=== PATIENT | male | born 1955 | race Caucasian/White ===

== ENCOUNTER 2022-12-03 13:51 | Emergency (ER) | payer OTHER ==
[2022-12-03] MEDS ORDERED: Ringers Lactate 1,000 ML IV ONE (14:26)
[2022-12-03] MEDS ORDERED: ONDANSETRON 4 MG/2 ML VIAL ONE ×2 (14:26→15:19)
[2022-12-03 14:44] LABS: Absolute Lymphocytes (CBC) 2.2 K/uL (0.7-4.9); Hematocrit 48.7 % (39.6-49.0); Lymphocytes % 19.6 % (15.3-44.8); MCV 94.8 fL (80-100); MPV 9.3 fL (7.6-11.3); RBC Red Blood Cell Count 5.14 M/uL (4.33-5.43)
[2022-12-03 15:04] LABS: Albumin 4.6 g/dL (3.4-5.0); Bilirubin Total 0.9 mg/dL (0.2-1.0); Potassium 4.3 mEq/L (3.5-5.1); Protein, Total 8.5 g/dL (6.4-8.2)
[2022-12-03] MEDS ORDERED: MORPHINE 4 MG/ML SYR ONE (15:19)
--- NOTE | 2022-12-03 16:19 | RAD REPORT ---
EXAM DESCRIPTION: CT - Abdomen Pelvis W Contrast - 12/03/2022 3:40 pm CLINICAL HISTORY: Abd pain;Nausea / vomiting COMPARISON: No comparisons TECHNIQUE: Thin cut axial CT imaging of the abdomen and pelvis was performed following intravenous a dministration of 100 mL Isovue 300. Multiplanar reformats were generated and reviewed. All CT scans are performed using dose optimization technique as appropriate and may include automated exposure control or mA/KV adjustment according to patient size. FINDINGS: No suspicious findings in the lung bases. The liver demonstrates regional dominant areas of hypoattenuation, suggesting steatosis with areas of fatty sparing. Adrenal glands, spleen, and pancreas show no suspicious findings. Gallbladder sludge. No gallstones. No evidence of intra or extrahepatic biliary ductal dilation. Symmetric renal function is seen with no hydronephrosis or suspicious renal mass. No dilated bowel loops or bowel wall thickening. No free air, free fluid or inflammatory stranding. N o hernia, mass or bulky lymphadenopathy. The urinary bladder is without significant finding. Prostato megaly. No suspicious bony findings. IMPRESSION: No acute intra-abdominal process. Incidental findings as above.
[2022-12-03 16:58] LABS: Specific Gravity 1.027 (1.005-1.030); Urine Bacteria <20 /HPF (<20); Urine Bilirubin NEGATIVE (Negative); Urine Blood Negative (Negative); Urine Clarity Turbid (Clear); Urine Color Light-Yellow (Yellow); Urine Glucose NEGATIVE (Negative); Urine Mucus Slight /HPF (None Seen); Urine Protein TRACE (Negative); Urine RBC <5 /HPF (None Seen); Urine Urobilinogen Normal (Normal); Urine pH 5.5 (5.0-7.0)
[2022-12-03] MEDS ORDERED: PROMETHAZINE INJ 25 MG/ML AMP ONE (17:59)
[2022-12-03] MEDS ORDERED: DICYCLOMINE HCL 20 MG/2 ML AMP IM ONE (17:59)
--- NOTE | 2022-12-03 18:13 | ER ---
Nurse's Notes [facility] Name: Rey Eller Age: 67 yrs Sex: Male : 1955 Arrival Date: 12/03/2022 Time: 13:51 Bed 4 Private MD: Diagnosis: Abdominal pain, Generalized;Nausea with vomiting, unspecified Presentation: 12/03 14:08 Chief complaint: Nausea x 4 days, abdominal pain and vomiting today. Coronavirus hb screen: At this time, the client does not indicate any symptoms associated with coronavirus-19. Ebola Screen: No symptoms or risks identified at this time. Initial Sepsis Screen: Does the patient meet any 2 criteria? No. Patient's initial sepsis screen is negative. Does the patient have a suspected source of infection? No. Patient's initial sepsis screen is negative. Risk Assessment: Do you want to hurt yourself or someone else? Patient reports no desire to harm self or others. Onset of symptoms was November 29, 2022. 14:08 Method Of Arrival: Ambulatory hb 14:08 Acuity: PAULETTE 3 hb Historical: - Allergies: 14:10 No Known Allergies; hb - Home Meds: 14:10 Lisinopril Oral [Active]; atorvastatin oral [Active]; Allopurinol Oral [Active]; hb - PMHx: 14:10 Hypertension; Gout; hb - PSHx: 14:10 Appendectomy; Arm - Left; hb - Immunization history:: Adult Immunizations up to date. - Social history:: Smoking status: Patient denies any tobacco usage or history of. Screenin:26 [facility] ED Fall Risk Assessment (Adult) History of falling in the last 3 months, mb9 including since admission No falls in past 3 months (0 pts) Confusion or Disorientation No (0 pts) Intoxicated or Sedated No (0 pts) Impaired Gait No (0 pts) Mobility Assist Device Used No (0 pt) Altered Elimination No (0 pt) Score/Fall Risk Level 0 - 2 = Low Risk Oriented to surroundings, Maintained a safe environment, Educated pt \T\ family on fall prevention, incl call for assistance when getting out of bed. Abuse screen: Denies threats or abuse. Nutritional screening: No deficits noted. Tuberculosis screening: No symptoms or risk factors identified. Assessment: 14:29 General: Appears uncomfortable, Behavior is anxious, crying. Pain: Complains of pain in mb9 abdomen Pain does not radiate. Pain currently is 6 out of 10 on a pain scale. Quality of pain is described as throbbing, Is intermittent. Neuro: Mcdonald Agitation-Sedation Scale (RASS): 0 - Alert and Calm Level of Consciousness is awake, alert, obeys commands, Oriented to person, place, time, situation, Appropriate for age. Cardiovascular: Heart tones S1 S2 present Patient's skin is warm and dry. Rhythm is regular. Respiratory: Airway is patent Respiratory effort is even, unlabored, Respiratory pattern is regular, symmetrical. GI: Abdomen is round non-distended, Bowel sounds present X 4 quads. Abd is soft Abdomen is tender to palpation in right upper quadrant Reports nausea, vomiting. Derm: Skin is pink, warm \T\ dry. Musculoskeletal: Range of motion: intact in all extremities. 15:53 Reassessment: Patient and/or family updated on plan of care and expected duration. Pain mb9 level reassessed. Patient is alert, oriented x 3, equal unlabored respirations, skin warm/dry/pink. Patient states symptoms have improved. 18:23 Reassessment: Patient and/or family updated on plan of care and expected duration. Pain mb9 level reassessed. Patient is alert, oriented x 3, equal unlabored respirations, skin warm/dry/pink. Patient states feeling better. Patient states symptoms have improved. Vital Signs: 14:08 BP 145 / 108; Pulse 76; Resp 18; Temp 98.8; Pulse Ox 100% on R/A; Weight 104.33 kg; hb Height 5 ft. 11 in. ; Pain 4/10; 14:28 BP 157 / 98; Pulse 77; Resp 18; Pulse Ox 100% ; mb9 15:24 BP 140 / 87; Pulse 82; Resp 18; Pulse Ox 95% on R/A; mb9 18:30 BP 136 / 86; Pulse 70; Resp 16; Pulse Ox 100% ; mb9 14:08 Body Mass Index 32.08 (104.33 kg, 180.34 cm) hb 14:08 Pain Scale: Adult hb ED Course: 13:53 Patient arrived in ED. kj1 14:05 Abhijit Martino DO is Attending Physician. ms3 14:10 Triage completed. hb 14:26 Breneman, Sherie, RN is Primary Nurse. mb9 14:27 Inserted saline lock: 20 gauge in right antecubital area, using aseptic technique. zm Blood collected. 14:27 Lipase Sent. zm 14:27 CMP Sent. zm 14:27 CBC with Diff Sent. zm 14:28 Radiology exam delayed due to lab results not completed at this time. (BUN/Creatinine) jg10 IV insertion attempt and/or patient not having appropriate IV at this time. 14:28 Placed in gown. Bed in low position. Call light in reach. Side rails up X 1. Client mb9 placed on continuous cardiac and pulse oximetry monitoring. NIBP monitoring applied. cardiac monitor on. 14:32 No provider procedures requiring assistance completed. mb9 14:32 CBC with Diff Sent. mb9 14:32 CMP Sent. mb9 14:32 Arm band placed on. mb9 15:42 CT Abd/Pelvis - IV Contrast Only In Process Unspecified. EDMS 18:11 Truman Coffman MD is Referral Physician. ms3 18:11 Paco Granger DO is Referral Physician. ms3 18:24 IV discontinued, intact, bleeding controlled, No redness/swelling at site. Pressure mb9 dressing applied. Administered Medications: 14:26 Drug: Ondansetron IVP 4 mg Route: IVP; Site: right antecubital; mb9 15:17 Follow up: Response: No adverse reaction mb9 14:26 Drug: Lactated Ringers Solution IV 1000 ml Route: IV; Rate: 1000 ml/hr; Site: right mb9 antecubital; 15:10 Drug: Ondansetron IVP 4 mg Route: IVP; Site: right antecubital; mb9 15:28 Follow up: Response: No adverse reaction mb9 15:16 Not Given (Physician Discretion): Ondansetron PO 4 mg PO once mb9 15:16 Drug: morphine IVP or IV 4 mg Route: IVP; Infused Over: 4 mins; Site: right antecubital;mb9 15:28 Follow up: Response: No adverse reaction mb9 17:50 Drug: Dicyclomine IM 10 mg Route: IM; Site: left gluteus; mb9 17:52 Drug: Promethazine IM 12.5 mg Route: IM; Site: right gluteus; mb9 Medication: 14:29 VIS not applicable for this client. mb9 Outcome: 18:12 Discharge ordered by . ms3 18:31 Discharged to home ambulatory. mb9 18:31 Condition: stable 18:31 Discharge instructions given to patient, Instructed on discharge instructions, follow up and referral plans. Demonstrated understanding of instructions, follow-up care, medications, Prescriptions given X 2. 18:31 Patient left the ED. mb9 Signatures: Dispatcher [employer] EDMS Loida Ricketts, JL RN Kassi Mckeon kj1 Abhijit Martino DO DO ms3 Amirah Guerra [facility] Anais Posada RN RN mb9
--- NOTE | 2022-12-03 18:13 | EDPHYS ---
Physician Documentation [facility] Name: Rey Eller Age: 67 yrs Sex: Male : 1955 Arrival Date: 12/03/2022 Time: 13:51 Bed 4 Private MD: ED Physician Abhijit Martino HPI: 12/03 14:28 This 67 yrs old Male presents to ER via Ambulatory with complaints of Nausea/Vomiting. ms3 14:28 67-year-old male with past medical history of hypertension and gout presents for ms3 nausea, vomiting, abdominal pain. Patient states he is currently moving and developed nausea and lightheadedness on Thursday. Patient states at 2 AM he began vomiting of bile. Patient states he had 4 episodes of emesis last night. Patient states he came home and lay down today and had an additional 4 episodes of emesis. Patient states he is having 4/10 abdominal pressure that is located generally throughout his abdomen. Patient denies alleviating or inciting factors. Historical: - Allergies: 14:10 No Known Allergies; hb - Home Meds: 14:10 Lisinopril Oral [Active]; atorvastatin oral [Active]; Allopurinol Oral [Active]; hb - PMHx: 14:10 Hypertension; Gout; hb - PSHx: 14:10 Appendectomy; Arm - Left; hb - Immunization history:: Adult Immunizations up to date. - Social history:: Smoking status: Patient denies any tobacco usage or history of. ROS: 14:28 Constitutional: Negative for fever, and chills. Neck: Negative for injury, pain, and ms3 swelling, Cardiovascular: Negative for chest pain, and palpitations. Respiratory: Negative for shortness of breath, cough, wheezing, and pleuritic chest pain, MS/Extremity: Negative for injury and deformity, Skin: Negative for injury, rash, and discoloration. 14:28 Abdomen/GI: Positive for abdominal pain, nausea and vomiting. 14:28 All other systems are negative. Exam: 14:28 Constitutional: This is a well developed, well nourished patient who is awake, alert, ms3 and in no acute distress. Head/Face: Normocephalic, atraumatic. Neck: Trachea midline, no cervical lymphadenopathy. Supple, full range of motion without nuchal rigidity, or vertebral point tenderness. No Meningismus. Chest/axilla: Normal chest wall appearance and motion. Nontender with no deformity. Cardiovascular: Regular rate and rhythm with a normal S1 and S2. No gallops, murmurs, or rubs. Normal PMI, no JVD. No pulse deficits. Respiratory: Lungs have equal breath sounds bilaterally, clear to auscultation and percussion. No rales, rhonchi or wheezes noted. No increased work of breathing, no retractions or nasal flaring. 14:28 Abdomen/GI: Inspection: abdomen appears normal, Bowel sounds: normal, diminished, in all quadrants, Palpation: mild abdominal tenderness, in all quadrants. 16:58 ECG was reviewed by the Attending Physician. ms3 Vital Signs: 14:08 BP 145 / 108; Pulse 76; Resp 18; Temp 98.8; Pulse Ox 100% on R/A; Weight 104.33 kg; hb Height 5 ft. 11 in. ; Pain 4/10; 14:28 BP 157 / 98; Pulse 77; Resp 18; Pulse Ox 100% ; mb9 15:24 BP 140 / 87; Pulse 82; Resp 18; Pulse Ox 95% on R/A; mb9 18:30 BP 136 / 86; Pulse 70; Resp 16; Pulse Ox 100% ; mb9 14:08 Body Mass Index 32.08 (104.33 kg, 180.34 cm) hb 14:08 Pain Scale: Adult hb MDM: 14:28 Patient medically screened. ms3 14:28 Differential diagnosis: Nonspecific abd pain, viral gastroenteritis, Obstruction. ms3 18:12 Data reviewed: vital signs, nurses notes, lab test result(s), radiologic studies, and ms3 as a result, I will discharge patient. I considered the following discharge prescriptions or medication management in the emergency department Medications were administered in the Emergency Department. See MAR. Historians other than the Patient: Spouse/Significant Other: Patient's . Care significantly affected by the following chronic conditions: Hypertension. Counseling: I had a detailed discussion with the patient and/or guardian regarding: the historical points, exam findings, and any diagnostic results supporting the discharge/admit diagnosis, lab results, radiology results, the need for outpatient follow up, to return to the emergency department if symptoms worsen or persist or if there are any questions or concerns that arise at home. Response to treatment: the patient's symptoms have markedly improved after treatment, and as a result, I will discharge patient. Special discussion: Based on the patient's Hx, exam, and Dx evaluation, there is no indication for emergent surgery or inpatient Tx. It is understood by the patient/guardian that if the Sx's persist or worsen they need to return immediately for re-evaluation. 12/03 14:26 Order name: CBC with Diff; Complete Time: 16:23 ms3 12/03 14:26 Order name: CMP; Complete Time: 16:23 ms3 12/03 14:26 Order name: Lipase; Complete Time: 16:23 ms3 12/03 14:26 Order name: Urinalysis w/ reflexes; Complete Time: 17:06 ms3 12/03 16:36 Order name: CK; Complete Time: 17:31 ms3 12/03 14:26 Order name: CT Abd/Pelvis - IV Contrast Only; Complete Time: 16:23 ms3 12/03 14:26 Order name: IV Saline Lock; Complete Time: 14:26 ms3 12/03 14:26 Order name: Labs collected and sent; Complete Time: 14:26 ms3 EC:58 Rate is 69 beats/min. Rhythm is regular. QRS [place] is Normal. OR interval is normal. QRS ms3 interval is normal. Clinical impression: Normal ECG. Interpreted by me. Reviewed by me. Administered Medications: 14:26 Drug: Ondansetron IVP 4 mg Route: IVP; Site: right antecubital; mb9 15:17 Follow up: Response: No adverse reaction mb9 14:26 Drug: Lactated Ringers Solution IV 1000 ml Route: IV; Rate: 1000 ml/hr; Site: right mb9 antecubital; 15:10 Drug: Ondansetron IVP 4 mg Route: IVP; Site: right antecubital; mb9 15:28 Follow up: Response: No adverse reaction mb9 15:16 Not Given (Physician Discretion): Ondansetron PO 4 mg PO once mb9 15:16 Drug: morphine IVP or IV 4 mg Route: IVP; Infused Over: 4 mins; Site: right antecubital;mb9 15:28 Follow up: Response: No adverse reaction mb9 17:50 Drug: Dicyclomine IM 10 mg Route: IM; Site: left gluteus; mb9 17:52 Drug: Promethazine IM 12.5 mg Route: IM; Site: right gluteus; mb9 Disposition Summary: 12/03/22 18:12 Discharge Ordered Location: Home ms3 Condition: Stable ms3 Diagnosis - Abdominal pain, Generalized ms3 - Nausea with vomiting, unspecified ms3 Followup: ms3 - With: Truman Coffman MD - When: 2 - 3 days - Reason: Recheck today's complaints Followup: ms3 - With: Paco Granger DO - When: 2 - 3 days - Reason: Recheck today's complaints Discharge Instructions: - Discharge Summary Sheet ms3 - Abdominal Pain, Adult ms3 - Nausea and Vomiting, Adult ms3 Forms: - Medication Reconciliation Form ms3 - Thank You Letter ms3 - Antibiotic Education ms3 - Prescription Opioid Use ms3 Prescriptions: - ondansetron 4 mg Oral Tablet,disintegrating - take 1 tablet by ORAL route every 8 hours as needed for nausea and vomiting; 15 ms3 tablet; Refills: 0, Product Selection Permitted - dicyclomine 10 mg Oral Capsule - take 1 capsule by ORAL route 3 times per day; 15 capsule; Refills: 0, Product ms3 Selection Permitted Signatures: Dispatcher [employer] Loida Mcbride RN Abhijit Spears DO DO ms3 Anais Posada RN RN mb9
[2022-12-03 19:20] VITALS: TEMP 98.8
[2022-12-03 19:38] VITALS: BP 136/86; O2SAT 100
--- NOTE | 2022-12-05 14:52 | EKG ---
Test Date: 2022-12-03 Test Time: 14:23:25 Hydrostatic Tester: MB MEASUREMENT RESULTS: Intervals: Rate: 69 WA: 138 QRSD: 82 QT: 396 QTc: 424 [place]: P: 11 WA: 138 QRS: 48 T: 41 INTERPRETIVE STATEMENTS: Normal sinus rhythm Normal ECG No previous ECG available for comparison Electronically Signed On 12-05-22 14:45:11 CDT by Kurt Souza
== END 2022-12-03 18:31 | disposition home or self-care (01) ==
LOC: ER 13:51
DX: R10.84 Generalized abdominal pain (principal); R11.2 Nausea with vomiting, unspecified; I10 Essential (primary) hypertension
CPT/HCPCS: 93005; 85025; 81001; 36415; 82550; 83690; 80053; 74177; 96375; 96372; 96374; 99285; Q9967; J2550; J0500; J2405 ×2; J7120

== ENCOUNTER 2022-12-06 08:15 | Emergency (ER) | payer OTHER ==
[2022-12-06] MEDS ORDERED: PROMETHAZINE INJ 25 MG/ML AMP ONE (09:08)
[2022-12-06] MEDS ORDERED: FAMOTIDINE 20 MG/2 ML VIAL IV ONE (09:09)
[2022-12-06] MEDS ORDERED: NA CHLORIDE 0.9% 1,000 ML ONE (09:09)
[2022-12-06] MEDS ORDERED: NA CHLORIDE 0.9% 50 ML ONE (09:09)
[2022-12-06] MEDS ORDERED: HALOPERIDOL LACT 5 MG/ML INJ ONE (09:09)
[2022-12-06] MEDS ORDERED: NA CHLORIDE 0.9% 250 ML ONE (09:09)
[2022-12-06 09:13] LABS: Absolute Lymphocytes (CBC) 2.5 K/uL (0.7-4.9); Hematocrit 45.4 % (39.6-49.0); Lymphocytes % 21.7 % (15.3-44.8); MCV 93.9 fL (80-100); RBC Red Blood Cell Count 4.83 M/uL (4.33-5.43)
[2022-12-06 09:35] LABS: Albumin 4.1 g/dL (3.4-5.0); Bilirubin Total 0.9 mg/dL (0.2-1.0); Potassium 4.1 mEq/L (3.5-5.1); Protein, Total 7.8 g/dL (6.4-8.2); Uric Acid 6.2 mg/dL (3.5-7.2)
--- NOTE | 2022-12-06 09:44 | RAD REPORT ---
EXAM DESCRIPTION: RAD - Abdomen 1 View (KUB) - 12/06/2022 9:36 am CLINICAL HISTORY: ABD PAIN COMPARISON: Abdomen Pelvis W Contrast dated 12/03/2022 FINDINGS: Nonobstructive bowel gas pattern. No acute osseous abnormality.Visualized lungs are unrema rkable.No abnormal calcifications. Note that the upper abdomen does not included in the field of view . IMPRESSION: Nonobstructive bowel gas pattern. Upper abdomen not included in the field of view.
[2022-12-06] MEDS ORDERED: DIAZEPAM 5 MG TABLET ONE (10:38)
[2022-12-06 11:09] LABS: Urine Bacteria <20 /HPF (<20); Urine Bilirubin NEGATIVE (Negative); Urine Blood Trace (Negative); Urine Clarity Turbid (Clear); Urine Color Yellow (Yellow); Urine Glucose NEGATIVE (Negative); Urine Mucus Slight /HPF (None Seen); Urine Protein 1+ (Negative); Urine Urobilinogen Normal (Normal)
[2022-12-06] MEDS ORDERED: SIMETHICONE 80 MG TAB ONE (11:25)
--- NOTE | 2022-12-06 12:29 | EDPHYS ---
Physician Documentation [facility] Name: Rey Eller Age: 67 yrs Sex: Male : 1955 Arrival Date: 12/06/2022 Time: 08:15 Bed 17 Private MD: ED Physician Yuriy Thomas HPI: 12/06 08:38 This 67 yrs old Male presents to ER via Ambulatory with complaints of Abdominal Pain, snw Vomiting. 08:38 The patient presents with abdominal pain in the upper abdomen, right lower quadrant. snw Onset: The symptoms/episode began/occurred gradually, 4 day(s) ago, and became worse this morning, and became persistent. The symptoms radiate to right lower quadrant. The symptoms are described as achy. Severity of pain: At its worst the pain was moderate. It is unknown whether or not the patient has had similar symptoms in the past. The patient has been recently seen by a physician: The patient has been recently seen at the [facility] Emergency Department, this week. Historical: - Allergies: 08:30 No Known Allergies; aa5 - Home Meds: 13:00 Allopurinol Oral [Active]; atorvastatin oral [Active]; lisinopril Oral [Active]; eh3 - PMHx: 08:30 Gout; Hypertension; Hypercholesterolemia; aa5 - PSHx: 08:30 Appendectomy; Arm - Left; aa5 - Immunization history:: Adult Immunizations unknown. - Social history:: Smoking status: Patient denies any tobacco usage or history of. ROS: 08:38 Eyes: Negative for injury, pain, redness, and discharge, ENT: Negative for injury, snw pain, and discharge, Neck: Negative for injury, pain, and swelling, Cardiovascular: Negative for chest pain, palpitations, and edema, Respiratory: Negative for shortness of breath, cough, wheezing, and pleuritic chest pain. 08:38 Back: Negative for injury and pain, : Negative for injury, bleeding, discharge, and swelling, MS/Extremity: Negative for injury and deformity, Skin: Negative for injury, rash, and discoloration, Neuro: Negative for headache, weakness, numbness, tingling, and seizure, Psych: Negative for depression, anxiety, suicide ideation, homicidal ideation, and hallucinations. 08:38 Constitutional: Positive for body aches, poor PO intake. 08:38 Abdomen/GI: Positive for abdominal pain, nausea and vomiting, Negative for diarrhea. Exam: 08:37 Head/Face: Normocephalic, atraumatic. Eyes: Pupils equal round and reactive to light, snw extra-ocular motions intact. Lids and lashes normal. Conjunctiva and sclera are non-icteric and not injected. Cornea within normal limits. Periorbital areas with no swelling, redness, or edema. ENT: Nares patent. No nasal discharge, no septal abnormalities noted. Tympanic membranes are normal and external auditory canals are clear. Oropharynx with no redness, swelling, or masses, exudates, or evidence of obstruction, uvula midline. Mucous membranes moist. Neck: Trachea midline, no thyromegaly or masses palpated, and no cervical lymphadenopathy. Supple, full range of motion without nuchal rigidity, or vertebral point tenderness. No Meningismus. Chest/axilla: Normal chest wall appearance and motion. Nontender with no deformity. No lesions are appreciated. Cardiovascular: Regular rate and rhythm with a normal S1 and S2. No gallops, murmurs, or rubs. Normal PMI, no JVD. No pulse deficits. Respiratory: Lungs have equal breath sounds bilaterally, clear to auscultation and percussion. No rales, rhonchi or wheezes noted. No increased work of breathing, no retractions or nasal flaring. 08:37 Back: No spinal tenderness. No costovertebral tenderness. Full range of motion. Skin: Warm, dry with normal turgor. Normal color with no rashes, no lesions, and no evidence of cellulitis. MS/ Extremity: Pulses equal, no cyanosis. Neurovascular intact. Full, normal range of motion. Neuro: Awake and alert, GCS 15, oriented to person, place, time, and situation. Cranial nerves II-XII grossly intact. Motor strength 5/5 in all extremities. Sensory grossly intact. Cerebellar exam normal. Normal gait. 08:37 Constitutional: The patient appears alert, awake, anxious, uncomfortable. 08:37 Abdomen/GI: Inspection: abdomen appears normal, Bowel sounds: diminished, Palpation: mild abdominal tenderness, in all quadrants. 08:37 Psych: Behavior/mood is anxious, Affect is animated, Oriented to person, place, time. Vital Signs: 08:30 BP 133 / 80; Pulse 54; Resp 20; Temp 98.1(TE); Pulse Ox 99% on R/A; aa5 08:46 BP 145 / 76; Pulse 55; Resp 18; Pulse Ox 100% on R/A; eh3 09:30 BP 155 / 86; Pulse 56; Resp 18; Pulse Ox 100% on R/A; eh3 10:30 BP 116 / 68; Pulse 52; Resp 18; Pulse Ox 95% on R/A; eh3 11:30 BP 125 / 80; Pulse 59; Resp 18; Pulse Ox 96% on R/A; eh3 MDM: 08:23 Patient medically screened. snw 08:39 Differential diagnosis: bowel obstruction, gastritis, non-specific abd pain, snw pancreatitis. Data reviewed: vital signs, nurses notes. 11:49 Counseling: I had a detailed discussion with the patient and/or guardian regarding: the snw historical points, exam findings, and any diagnostic results supporting the discharge/admit diagnosis, lab results, the need for outpatient follow up, to return to the emergency department if symptoms worsen or persist or if there are any questions or concerns that arise at home. 12/06 08:31 Order name: CBC with Diff; Complete Time: 09:41 snw 12/06 08:31 Order name: CMP; Complete Time: 09:41 snw 12/06 08:31 Order name: Lipase; Complete Time: 09:41 snw 12/06 08:31 Order name: Urinalysis w/ reflexes; Complete Time: 11:09 snw 12/06 08:32 Order name: Uric Acid; Complete Time: 09:41 snw 12/06 08:32 Order name: XRAY Abdomen 1 View (KUB); Complete Time: 09:45 snw 12/06 08:31 Order name: IV Saline Lock; Complete Time: 09:15 snw 12/06 08:31 Order name: Labs collected and sent; Complete Time: 09:15 snw Administered Medications: 09:05 Drug: NS 0.9% IV 1000 ml Route: IV; Rate: 1 bolus; Site: right antecubital; 3 12:00 Follow up: IV Status: Completed infusion; IV Intake: 1000ml 3 09:05 Drug: Famotidine IVP 20 mg Route: IVP; Site: right antecubital; 3 10:00 Follow up: Response: No adverse reaction 3 09:10 Drug: Haloperidol IVP 2.5 mg/50 mL 2.5 mg Route: IVP; Site: right antecubital; 3 10:00 Follow up: Response: Adverse reaction, Physician notified; Pain is decreased 3 09:25 Drug: Promethazine IVP 25 mg Route: IVP; Site: right antecubital; 3 11:00 Follow up: Response: No adverse reaction 3 09:25 Drug: NS 0.9% IV 250 ml Route: IV; Rate: bolus; Site: right antecubital; 3 11:00 Follow up: IV Status: Completed infusion; IV Intake: 250ml 3 10:30 Drug: Diazepam IVP 5 mg {Note: Given PO.} Route: IVP; Site: Other; 3 11:23 Follow up: Response: No adverse reaction 3 11:13 Drug: Simethicone PO 240 mg Route: PO; 3 12:00 Follow up: Response: No adverse reaction [facility] Disposition: 13:05 Co-signature as Attending Physician, Yuriy Thomas MD I reviewed the patient's care rn provided by the Advanced Practice Provider and agree with the diagnosis and treatment plan. Disposition Summary: 12/06/22 12:29 Discharge Ordered Location: Home snw Condition: Stable snw Diagnosis - Nausea with vomiting, unspecified snw - Abdominal pain, unspecified snw Followup: snw - With: Emergency Department - When: As needed - Reason: Worsening of condition Followup: snw - With: Private Physician - When: 2 - 3 days - Reason: Recheck today's complaints, Continuance of care, Re-evaluation by your physician Discharge Instructions: - Discharge Summary Sheet snw - Abdominal Pain, Adult snw - Nausea and Vomiting, Adult snw - Gas and Gas Pains, Pediatric snw - Rehydration, Adult snw - [place] Diet snw Forms: - Work release form snw - Medication Reconciliation Form snw - Thank You Letter snw - Antibiotic Education snw - Prescription Opioid Use snw Prescriptions: - promethazine 25 mg Oral Tablet - take 1 tablet by ORAL route every 6 hours As needed; 20 tablet; Refills: 0, snw Product Selection Permitted Signatures: Dispatcher [employer] Jennie Allen FNP-C [employer]TER-Csnw Yuriy Thomas MD MD rn Calderon, Audri, RN RN aa5 Alice Covarrubias, RN RN eh3
--- NOTE | 2022-12-06 12:29 | ER ---
Nurse's Notes [facility] Name: Rey Eller Age: 67 yrs Sex: Male : 1955 Arrival Date: 12/06/2022 Time: 08:15 Bed 17 Private MD: Diagnosis: Nausea with vomiting, unspecified;Abdominal pain, unspecified Presentation: 12/06 08:30 Chief complaint: Patient states: seen here 12/03/22 for RLQ pain, vomiting, denies aa5 diarrhea. Pt states "the next day was better after being seen here but it's back now". 08:30 Coronavirus screen: vomiting. Ebola Screen: Patient denies travel to an Ebola-affected [facility] area in the 21 days before illness onset. Initial Sepsis Screen: Does the patient meet any 2 criteria? No. Patient's initial sepsis screen is negative. Does the patient have a suspected source of infection? No. Patient's initial sepsis screen is negative. Risk Assessment: Do you want to hurt yourself or someone else? Patient reports no desire to harm self or others. Onset of symptoms was November 2022. 08:30 Acuity: PAULETTE 3 aa5 08:30 Method Of Arrival: Ambulatory aa5 Historical: - Allergies: 08:30 No Known Allergies; aa5 - Home Meds: 13:00 Allopurinol Oral [Active]; atorvastatin oral [Active]; lisinopril Oral [Active]; eh3 - PMHx: 08:30 Gout; Hypertension; Hypercholesterolemia; aa5 - PSHx: 08:30 Appendectomy; Arm - Left; aa5 - Immunization history:: Adult Immunizations unknown. - Social history:: Smoking status: Patient denies any tobacco usage or history of. Screenin:46 [facility] ED Fall Risk Assessment (Adult) Score/Fall Risk Level 0 - 2 = Low Risk. Abuse eh3 screen: Denies threats or abuse. Denies injuries from another. Nutritional screening: Has had N/V for 3 or more days. Tuberculosis screening: No symptoms or risk factors identified. Assessment: 08:46 General: Appears distressed, uncomfortable, Behavior is cooperative, appropriate for eh3 age, restless. Pain: Complains of pain in right lower quadrant. Neuro: Level of Consciousness is awake, alert, obeys commands, Oriented to person, place, time, situation. Cardiovascular: Capillary refill < 3 seconds Patient's skin is warm and dry. Respiratory: Airway is patent Respiratory effort is even, unlabored, Respiratory pattern is regular, symmetrical. GI: Abdomen is round non-distended, Bowel sounds present X 4 quads. Abd is soft X 4 quads Abdomen is tender to palpation in right upper quadrant and right lower quadrant Reports lower abdominal pain, cramping, intolerance of fluids, intolerance of food, nausea, vomiting. : No signs and/or symptoms were reported regarding the genitourinary system. EENT: No signs and/or symptoms were reported regarding the EENT system. Derm: Skin is pink, warm \\T\\ dry. Musculoskeletal: No signs and/or symptoms reported regarding the musculoskeletal system. 09:30 Reassessment: Patient appears in no apparent distress at this time. Patient and/or eh3 family updated on plan of care and expected duration. Pain level reassessed. Patient is alert, oriented x 3, equal unlabored respirations, skin warm/dry/pink. Patient states symptoms have improved. 10:20 Reassessment: Pt states he feels like he is going to jump out of his skin and can't eh3 stay still, provider notified. 10:30 Reassessment: Patient and/or family updated on plan of care and expected duration. Pain eh3 level reassessed. Patient is alert, oriented x 3, equal unlabored respirations, skin warm/dry/pink. 11:30 Reassessment: Patient appears in no apparent distress at this time. Patient and/or eh3 family updated on plan of care and expected duration. Pain level reassessed. Patient is alert, oriented x 3, equal unlabored respirations, skin warm/dry/pink. Patient states symptoms have improved. Vital Signs: 08:30 BP 133 / 80; Pulse 54; Resp 20; Temp 98.1(TE); Pulse Ox 99% on R/A; aa5 08:46 BP 145 / 76; Pulse 55; Resp 18; Pulse Ox 100% on R/A; eh3 09:30 BP 155 / 86; Pulse 56; Resp 18; Pulse Ox 100% on R/A; eh3 10:30 BP 116 / 68; Pulse 52; Resp 18; Pulse Ox 95% on R/A; eh3 11:30 BP 125 / 80; Pulse 59; Resp 18; Pulse Ox 96% on R/A; eh3 ED Course: 08:17 Patient arrived in ED. im 08:22 Jennie Gutiérrez [facility]C [facility] snw 08:22 Yuriy Thomas MD is Attending Physician. snw 08:30 Arm band placed on. aa5 08:36 Triage completed. aa5 08:46 Patient has correct armband on for positive identification. Bed in low position. Call eh3 light in reach. Side rails up X2. Adult w/ patient. Client placed on continuous cardiac and pulse oximetry monitoring. NIBP monitoring applied. Door closed. Noise minimized. Lights dimmed. Warm blanket given. 08:48 Inserted saline lock: 20 gauge in right antecubital area, using aseptic technique. eh3 Blood collected. 08:50 Chapito La, JL is Primary Nurse. bp 08:50 Primary Nurse role handed off by Chapito La, JL eh3 08:50 Alice Covarrubias RN is Primary Nurse. eh3 09:37 XRAY Abdomen 1 View (KUB) In Process Unspecified. EDMS 13:00 No provider procedures requiring assistance completed. IV discontinued, intact, eh3 bleeding controlled, No redness/swelling at site. Pressure dressing applied. Administered Medications: 09:05 Drug: NS 0.9% IV 1000 ml Route: IV; Rate: 1 bolus; Site: right antecubital; eh3 12:00 Follow up: IV Status: Completed infusion; IV Intake: 1000ml eh3 09:05 Drug: Famotidine IVP 20 mg Route: IVP; Site: right antecubital; eh3 10:00 Follow up: Response: No adverse reaction eh3 09:10 Drug: Haloperidol IVP 2.5 mg/50 mL 2.5 mg Route: IVP; Site: right antecubital; eh3 10:00 Follow up: Response: Adverse reaction, Physician notified; Pain is decreased eh3 09:25 Drug: Promethazine IVP 25 mg Route: IVP; Site: right antecubital; eh3 11:00 Follow up: Response: No adverse reaction eh3 09:25 Drug: NS 0.9% IV 250 ml Route: IV; Rate: bolus; Site: right antecubital; eh3 11:00 Follow up: IV Status: Completed infusion; IV Intake: 250ml eh3 10:30 Drug: Diazepam IVP 5 mg {Note: Given PO.} Route: IVP; Site: Other; eh3 11:23 Follow up: Response: No adverse reaction eh3 11:13 Drug: Simethicone PO 240 mg Route: PO; eh3 12:00 Follow up: Response: No adverse reaction eh3 Medication: 13:00 VIS not applicable for this client. eh3 Intake: 11:00 IV: 250ml; Total: 250ml. eh3 12:00 IV: 1000ml; Total: 1250ml. eh3 Outcome: 12:29 Discharge ordered by MD. myrick 13:00 Patient left the ED. eh3 13:00 Discharged to home ambulatory, with significant other. eh3 13:00 Condition: stable 13:00 Discharge instructions given to patient, Instructed on discharge instructions, follow up and referral plans. Demonstrated understanding of instructions, follow-up care, medications, Prescriptions given X 1. Signatures: Dispatcher [employer] EDMS Jennie Gutiérrez, RAFI-C RAW HIDE TRIMMER-Csnw Bhavya Sheets, RN RN aa5 Chapito La RN RN bp Alice Covarrubias RN RN 3 Herlinda Baez
[2022-12-06 13:44] VITALS: TEMP 98.1
[2022-12-06 14:04] VITALS: BP 125/80; O2SAT 96
== END 2022-12-06 13:00 | disposition home or self-care (01) ==
LOC: ER 08:15
DX: R11.2 Nausea with vomiting, unspecified (principal); R10.31 Right lower quadrant pain; I10 Essential (primary) hypertension; E78.00 Pure hypercholesterolemia, unspecified
CPT/HCPCS: 85025; 81001; 36415; 84550; 83690; 80053; 74018; 99284; J2550; J1630; J7050; J7030